=== PATIENT | female | born 1935 | race Caucasian/White ===

== ENCOUNTER → 2023-12-14 12:18 | Outpatient (CLI) | payer MEDICARE, SELFPAY ==
--- NOTE | 2023-12-14 12:22 | DI.RAD.S_ITS ---
PROCEDURE: XR CHEST 2V INDICATIONS: Shortness of breath, eval for effusion or pulmonary TECHNIQUE: 2 views of the chest were acquired. COMPARISON: None. FINDINGS: Surgical changes and devices: None. Lungs and pleura: Lungs are clear. No pleural effusions or pneumothorax. Mediastinum: Mildly tortuous thoracic aorta is seen. Heart size is normal. Bones and chest wall: No suspicious bony abnormalities. Soft tissues appear unremarkable. IMPRESSION: No acute cardiopulmonary pathology. Dictated by: Satya Randall M.D. on 12/14/2023 at 16:37 Approved by: Satya Randall M.D. on 12/14/2023 at 16:37
== END ==
PROVIDERS: PCP Family Medicine; Referring Provider Internal Medicine Critical Care Medicine; Visit Provider Internal Medicine Critical Care Medicine
DX: J41.8 Mixed simple and mucopurulent chronic bronchitis (principal); R06.09 Other forms of dyspnea
CPT/HCPCS: 71046; 99214